=== PATIENT | female | born 1985 | race Caucasian/White ===

== ENCOUNTER 2018-11-07 07:42 | Inpatient (IN) ==
[2018-11-07] MEDS ORDERED: OXYTOCIN 30 UNITS/500 ML BAG IV PRN ×2 (08:06)
[2018-11-07 08:36] LABS: Hematocrit (blood only) 36.5 % (37-47); Hemoglobin 12.5 g/dL (12.0-16.0); Mean Corpuscular Volume 84.9 fL (80-100); Mean Platelet Volume 10.6 fL (7.4-10.4); Platelet Count 181 K/uL (130-400); RDW Coefficient of Variation 13.5 % (11.5-14.5); RDW Standard Deviation 41.3 fL (36.4-46.3); White Blood Count 10.04 K/uL (4.8-10.8)
--- NOTE | 2018-11-07 08:49 | History & Physical Report ---
Date of Service November 07, 2018 Assessment & Plan (1) Encounter for induction of labor: started on pitocin drip for augmentation of labor as well as fluid drip dale bulb still in place monitoring vitals, FHT and patient status Will adjust plan as necessary for augmentation History of Present Illness Primary Care Provider: Luly Mclaughlin 40w 4d confirmed via ultrasound on 03/30/2018. Here for induction of vaginal delivery. No complications with this . Has been attending OB appointments regularly. Currently taking no medications. Occasionally takes albuterol inhaler for exercise induced asthma, took it today for mild chest tightness during a contraction. Contractions: Sporadic Fluid or Blood loss: had dale bulb placed last night and experienced significant blood loss with that Movement: active Labs Blood type: A+ Antibody screen: neg H.5 Hct: 36.5 Wbc: 10.04 Plt:181 Rubella: immune VDRL/RPR: nonreactive Gonorrhea:neg Chlamydia:neg HIV: neg HbSAg: neg GBS: neg Glucose tolerance x2: first screen neg, second screen positive Allergies Allergy/AdvReac Type Severity Reaction Status Date / Time KEFLEX Allergy Mild Hives Uncoded 11/07/18 09:48 Home Medications Home Medications Medication Instructions Recorded Confirmed Type albuterol sulfate [ProAir HFA] 1 puff INHALATION Q6H PRN 11/01/18 11/07/18 History docusate sodium [Colace] 100 mg PO BID 11/01/18 11/07/18 History vit-iron fum-folic ac 1 tab PO DAILY 11/01/18 11/07/18 History [ Vitamin] Patient History Medical History Encounter for supervision of normal in third trimester History of genital warts History of ovarian cyst Surgical History S/P wisdom tooth extraction Family History Father Myasthenia gravis Social History Preferred Language: Togolese Beliefs That Will Affect Care: None marital status: Current Living Situation: Spouse Other Information That Helps Us Care for You: No Feels Safe at Home: Yes Safety Concerns: Feels Safe At This Time Smoking Status: Former smoker Second Hand Exposure: No ; Hx Alcohol Use: No Hx Substance Use: No Review of Systems + fatigue; no fever and no chills no cough, no dyspnea and no wheezing + edema; no chest pain and no calf pain + cramping; no abdominal pain, no nausea, no vomiting, no constipation and no diarrhea/loose stools no dysuria and no difficulty urinating no back pain + headache(s) (tension headache for past 2 days) Physical Exam Constitutional: well developed and well nourished Respiratory: normal respiratory effort; no respiratory distress, no labored breathing and no cough Auscultation: no diminished lung sounds, no crackles, no rales, no rhonchi and no wheezes Cardiovascular: Rate/Rhythm: regular rate and regular rhythm Extremities: normal capillary refill, + calf tenderness (L calf on palpation) and + pedal edema Gastrointestinal (Abdomen): Inspection/Auscultation: + abdomen distended and normal bowel sounds Percussion/Palpation: abdomen nontender and no guarding Genitourinary: Speculum/Bimanual Exam: + uterus enlarged OB Exam Abdomen: + fundal height Fundus: + firm and + relation to umbilicus (high above umbilicus); not tender Cervical Exam per OB: Dilation - fingertip Effacement - 80% Station - -2 Results & Data Vital Signs (Past 12 Hours) Vital Signs Temp Pulse BP 11/07/18 07:59 36.7 C 63 120/66 11/07/18 07:52 63 120/66 Monitoring External Monitor Heart Monitor: Moderate Variability Accelerations No Decels Baseline HR 140 Tocodynamometer Contraction Frequency: sporadic, not timeable at the moment Supervising Physician Co-Signing Physician Notes Resident Physician Supervision Note: I was present with Dr. Garcia during the history and exam. I discussed the case with the resident and agree with the findings and plan as documented in the note. Any exceptions or clarifications are listed here: [None] Documented By: Chen Jacobsen MD, FACOG
[2018-11-07 08:58] LABS: Mean Corpuscular Hgb Conc 34.2 g/dL (32-36)
[2018-11-07] MEDS: LACTATED RINGER'S 1,000 ML IV PRN ×3 (09:39→22:57)
[2018-11-07] MEDS ORDERED: ACETAMINOPHEN 325 MG TAB PO STA (10:23)
[2018-11-07] MEDS ORDERED: ACETAMINOPHEN 65 ML IV ONE (10:30)
[2018-11-07] MEDS ORDERED: ALBUTEROL HFA 8 GM INHALER INH STA (10:59)
[2018-11-07] MEDS ORDERED: Nursing to Pharmacy Communication ONE (20:00)
[2018-11-07] MEDS ORDERED: ePHEDrine sulfate 50 MG/ML AMP ONE (21:44)
[2018-11-07] MEDS ORDERED: fentaNYL citrate 100 MCG/2 ML VIAL ONE (21:44)
[2018-11-07] MEDS ORDERED: BUPIVACAINE 0.25% 30 ML VIAL ONE (21:44)
[2018-11-07] MEDS ORDERED: fentaNYL 2MCG/ML ROPIV 1.25MG/ML 100 ML BAG EPI ONE (21:45)
--- NOTE | 2018-11-07 22:46 | Anesthesiology Consultation ---
Date of Service November 07, 2018 Assessment & Plan Chart Review Chart Review: Acceptable Risk for Labor Epidural Consults Requested none History Height/Weight Height: 5 ft 5 in Weight: 92.986 kg Allergies Allergy/AdvReac Type Severity Reaction Status Date / Time KEFLEX Allergy Mild Hives Uncoded 11/07/18 09:48 Medications Home Medications Medication Instructions Recorded Confirmed Last Taken albuterol sulfate [ProAir HFA] 1 puff INHALATION Q6H PRN 11/01/18 11/07/18 11/07/18 06:30 docusate sodium [Colace] 100 mg PO BID 11/01/18 11/07/18 11/06/18 09:00 vit-iron fum-folic ac 1 tab PO DAILY 11/01/18 11/07/18 11/06/18 09:00 [ Vitamin] Active Medications Generic Name Dose Route Start Last Admin Trade Name Freq PRN Reason Stop Dose Admin Lactated Ringer's 1,000 mls @ 125 mls/hr 11/07/18 08:06 11/07/18 17:42 Lr IV 11/09/18 08:05 125 mls/hr .Q8H PRN Administration L&D Protocol Protocol Oxytocin 30 units in 500 mls @ 21 mls/hr 11/07/18 08:06 11/07/18 20:30 Pitocin IV 12/07/18 08:05 1.26 units/hr .[id number] PRN 21 mls/hr Labor Induction/Augmentation Titration Protocol 1.26 UNITS/HR Past Medical History Medical History Encounter for supervision of normal in third trimester History of genital warts History of ovarian cyst Past Family History Family History Father Myasthenia gravis Past Surgical History Surgical History S/P wisdom tooth extraction Social History Smoking Status: Former smoker Hx Alcohol Use: No Hx Substance Use: No substance use type: does not use Physical Exam Vital Signs Last Vital Signs Temp 36.9 C 11/07/18 21:38 Pulse 62 11/07/18 22:42 Resp 20 11/07/18 21:38 BP 112/66 11/07/18 22:42 Pulse Ox 97 11/07/18 22:40 Testing Laboratory Results 11/07/18 08:11
[2018-11-07] MEDS ORDERED: NALBUPHINE HCL INJ 10 MG/ML AMP IV PRN (22:49)
[2018-11-07] MEDS ORDERED: NALOXONE HCL 1 MG in SODIUM CHLORIDE 0.9% 1000ML 1,000 ML IV PRN (22:49)
[2018-11-07] MEDS ORDERED: ePHEDrine sulfate 50 MG/ML AMP IV PRN (22:49)
[2018-11-07] MEDS ORDERED: DiphenhydrAMINE HCL 50 MG/ML VIAL IV PRN (22:49)
[2018-11-07] MEDS ORDERED: fentaNYL 2MCG/ML ROPIV 1.25MG/ML 100 ML BAG EPI PRN (22:49)
[2018-11-07] MEDS ORDERED: NALOXONE HCL 0.4 MG/1 ML VIAL/CARP IV PRN (22:49)
[2018-11-08] MEDS: LACTATED RINGER'S 1,000 ML IV PRN ×2 (02:30→07:05)
--- NOTE | 2018-11-08 08:40 | Labor Progress Brief Note ---
Date of Service November 08, 2018 Subjective pushing Assessment & Plan (1) Encounter for induction of labor: Will continue second stage. I have concerns about this baby fitting out and whether it will tolerate a prolonged push. discussed this with the patient. they express understanding of the situation. Fetus catetory 2. (2) Supervision of elderly primigravida: Physical Exam Constitutional: WD/WN, vitals as above Genitourinary: cx--c/c/+1, very tight vaginal band anteriorly toco--q2-3min, pit at 15 efm--150s with mod variability, variables with potential late component with pushing, does seem to be back to baseline by end of contraction Results & Data Vital Signs (Past 12 Hours) Vital Signs Temp Pulse Resp BP Pulse Ox 11/08/18 08:35 61 99 11/08/18 08:33 61 110/67 11/08/18 08:30 63 99 11/08/18 08:25 56 L 99 11/08/18 08:20 61 100 11/08/18 08:19 57 L 106/63 11/08/18 08:15 61 98 11/08/18 08:13 60 87 L 11/08/18 08:10 62 99 11/08/18 08:05 56 L 100 11/08/18 08:04 56 L 119/57 L 11/08/18 08:00 50 L 96 11/08/18 07:55 52 L 97 11/08/18 07:50 52 L 98/54 L 100 11/08/18 07:45 56 L 100 11/08/18 07:40 57 L 98 11/08/18 07:35 56 L 98/55 L 98 11/08/18 07:30 57 L 100 11/08/18 07:25 56 L 100 11/08/18 07:20 54 L 100 11/08/18 07:19 56 L 18 118/64 11/08/18 07:15 62 99 11/08/18 07:10 54 L 99 11/08/18 07:05 55 L 100 11/08/18 07:04 54 L 107/59 L 11/08/18 07:00 36.4 C L 57 L 18 100 11/08/18 06:55 61 99 11/08/18 06:50 58 L 100 11/08/18 06:48 50 L 115/65 08/08/19 06:45 52 L 100 11/08/18 06:40 57 L 100 11/08/18 06:35 54 L 113/68 100 11/08/18 06:30 56 L 20 100 11/08/18 06:25 61 99 11/08/18 06:20 56 L 100 11/08/18 06:19 55 L 106/59 L 11/08/18 06:15 52 L 99 11/08/18 06:10 52 L 100 11/08/18 06:06 59 L 117/60 11/08/18 06:05 67 100 11/08/18 06:00 36.9 C 66 98 11/08/18 05:55 60 99 11/08/18 05:50 66 121/68 99 11/08/18 05:45 59 L 99 11/08/18 05:40 62 100 11/08/18 05:35 54 L 100 11/08/18 05:33 56 L 116/73 11/08/18 05:30 58 L 20 100 11/08/18 05:25 87 97 11/08/18 05:22 60 93 11/08/18 05:20 54 L 100 11/08/18 05:19 63 107/67 11/08/18 05:15 60 100 11/08/18 05:10 58 L 96 11/08/18 05:05 59 L 103/65 98 11/08/18 05:00 67 99 11/08/18 04:55 68 95 11/08/18 04:50 49 L 96 11/08/18 04:48 47 L 98/65 L 11/08/18 04:45 51 L 96 11/08/18 04:40 50 L 97 11/08/18 04:35 53 L 106/68 98 11/08/18 04:32 36.5 C 20 11/08/18 04:30 54 L 99 11/08/18 04:25 57 L 100 11/08/18 04:20 50 L 97 11/08/18 04:18 89/53 L 11/08/18 04:16 52 L 94 11/08/18 04:15 50 L 96 11/08/18 04:10 57 L 97 11/08/18 04:05 54 L 98 11/08/18 04:03 52 L 87/51 L 11/08/18 04:00 53 L 98 11/08/18 03:55 52 L 99 11/08/18 03:50 56 L 100 11/08/18 03:49 57 L 90/54 L 11/08/18 03:45 55 L 100 11/08/18 03:40 37.0 C 54 L 20 100 11/08/18 03:35 55 L 99 11/08/18 03:34 54 L 106/54 L 11/08/18 03:30 56 L 100 11/08/18 03:25 58 L 100 11/08/18 03:20 61 98 11/08/18 03:19 64 112/60 11/08/18 03:18 73 93 11/08/18 03:15 62 97 11/08/18 03:10 50 L 100 11/08/18 03:05 58 L 100 11/08/18 03:04 50 L 110/71 11/08/18 03:00 52 L 97 11/08/18 02:55 53 L 97 11/08/18 02:50 51 L 96 11/08/18 02:48 50 L 107/69 11/08/18 02:45 50 L 98 11/08/18 02:40 53 L 99 11/08/18 02:35 53 L 99 11/08/18 02:33 52 L 108/66 11/08/18 02:30 65 100 11/08/18 02:25 51 L 100 11/08/18 02:20 53 L 100 11/08/18 02:18 54 L 105/68 11/08/18 02:15 50 L 100 11/08/18 02:10 52 L 100 11/08/18 02:05 50 L 100 11/08/18 02:04 57 L 100/60 11/08/18 02:00 53 L 20 98 11/08/18 01:55 55 L 100 11/08/18 01:50 53 L 100 11/08/18 01:49 51 L 98/50 L 11/08/18 01:45 51 L 99 11/08/18 01:40 55 L 99 11/08/18 01:35 72 96 11/08/18 01:34 60 104/63 11/08/18 01:30 36.9 C 54 L 20 96 11/08/18 01:25 54 L 96 11/08/18 01:20 54 L 99 11/08/18 01:19 55 L 102/58 L 11/08/18 01:15 54 L 98 11/08/18 01:10 55 L 98 11/08/18 01:05 53 L 99 11/08/18 01:03 53 L 95/56 L 11/08/18 01:00 53 L 20 98 11/08/18 00:55 72 97 11/08/18 00:50 58 L 98 11/08/18 00:48 58 L 107/62 11/08/18 00:45 53 L 96 11/08/18 00:40 54 L 98 11/08/18 00:35 51 L 100 11/08/18 00:34 53 L 113/64 11/08/18 00:30 67 18 99 11/08/18 00:25 53 L 98 11/08/18 00:20 53 L 96 11/08/18 00:19 54 L 106/66 11/08/18 00:15 55 L 99 11/08/18 00:10 57 L 98 11/08/18 00:05 65 99 11/08/18 00:03 60 112/55 L 11/08/18 00:00 73 20 98 11/07/18 23:56 54 L 84/54 L 11/07/18 23:55 58 L 99 11/07/18 23:50 59 L 99 11/07/18 23:45 64 96 11/07/18 23:40 55 L 114/67 97 11/07/18 23:35 56 L 97 11/07/18 23:30 54 L 20 98 11/07/18 23:25 58 L 99 11/07/18 23:24 57 L 110/63 11/07/18 23:20 60 99 11/07/18 23:15 62 20 99 11/07/18 23:10 60 114/73 99 11/07/18 23:05 57 L 98 11/07/18 23:00 36.7 C 58 L 20 100 11/07/18 22:58 69 92 11/07/18 22:55 60 99 11/07/18 22:54 60 131/68 11/07/18 22:50 54 L 100 11/07/18 22:47 59 L 128/74 11/07/18 22:45 63 20 100 11/07/18 22:42 62 112/66 11/07/18 22:40 63 20 111/61 97 11/07/18 22:38 64 108/59 L 11/07/18 22:35 62 20 115/56 L 100 11/07/18 22:31 68 90 11/07/18 22:30 65 20 100 11/07/18 22:25 70 100 11/07/18 22:24 60 115/75 11/07/18 22:22 65 115/79 11/07/18 22:20 60 100 11/07/18 22:15 60 100 11/07/18 22:14 73 128/80 11/07/18 22:10 62 100 11/07/18 21:38 36.9 C 20 11/07/18 21:23 60 134/84
--- NOTE | 2018-11-08 09:07 | Delivery Summary ---
Vaginal Delivery Summary Date of Service November 08, 2018 Vaginal Delivery Summary Pre-operative Diagnosis: at term, previous c/s, desires , labor Post-operative Diagnosis: same Procedure: epidural, , second degree laceration EBL: 400 Aesthesia: epidural Procedure: The patient pushed for about 10 minutes to deliver a viable male in trip position. The nose and mouth were bulb suctioned, there was no nuchal cord. the rest of the infant was then delivered without difficulty. The nose and mouth were bulb suctioned and the infant was placed in the maternal abdomen for drying and attention. Cord was clamped and cut at just after placeing on abdomen as it was a short cord. Cord blood and segment obtained. Placenta delivered s/i/3vc. Cervix/sulci/rectum intact. A second degree perineal laceration was repaired in the normal standard fashion. Hemostasis obtained with dilute pitocin and fundal massage. Apgars were 9/10. Mother and baby doing well at the end of the delivery.
[2018-11-08] MEDS ORDERED: OXYCODONE/ACETAMINOPHEN 5mg/325mg TAB PO PRN (09:09)
[2018-11-08] MEDS ORDERED: IBUPROFEN 600 MG TAB PO PRN (09:09)
[2018-11-08] MEDS ORDERED: ACETAMINOPHEN 325 MG TAB PO PRN (09:09)
--- NOTE | 2018-11-08 09:32 | Labor Progress Brief Note ---
Date of Service November 08, 2018 Subjective Patient has been pushing since 8:15 or so. Pushed for a good bit of time in knee chest. Assessment & Plan (1) Encounter for induction of labor: Going to push for about 15 more minutes but suspect will be proceeding with c/s ofr FTD. Disucssed with patient and so and express understanding. (2) Supervision of elderly primigravida: Physical Exam Constitutional: WD/WN, vitals as above Genitourinary: essentially no change in station. Still tight vaginal anterior band. Still +1 station with increasing caput. toco--1 2-3 min efm--135 with mod variability, less deceling with knee to chest, now back on back, less tolerable Results & Data Vital Signs (Past 12 Hours) Vital Signs Temp Pulse Resp BP Pulse Ox 11/08/18 09:20 57 L 123/71 99 11/08/18 09:15 75 99 11/08/18 09:10 69 99 11/08/18 09:09 70 90 11/08/18 09:05 63 100 11/08/18 09:03 59 L 111/70 11/08/18 09:00 67 100 11/08/18 08:55 75 98 11/08/18 08:52 36.6 C 16 11/08/18 08:50 64 99 11/08/18 08:48 63 110/67 11/08/18 08:45 71 100 11/08/18 08:40 82 100 11/08/18 08:38 73 93 11/08/18 08:35 61 99 11/08/18 08:33 61 110/67 11/08/18 08:30 63 99 11/08/18 08:25 56 L 99 11/08/18 08:20 61 100 11/08/18 08:19 57 L 106/63 11/08/18 08:15 61 98 11/08/18 08:13 60 87 L 11/08/18 08:10 62 99 11/08/18 08:05 56 L 100 11/08/18 08:04 56 L 119/57 L 11/08/18 08:00 50 L 96 11/08/18 07:55 52 L 97 11/08/18 07:50 52 L 98/54 L 100 11/08/18 07:45 56 L 100 11/08/18 07:40 57 L 98 11/08/18 07:35 56 L 98/55 L 98 11/08/18 07:30 57 L 100 11/08/18 07:25 56 L 100 11/08/18 07:20 54 L 100 11/08/18 07:19 56 L 18 118/64 11/08/18 07:15 62 99 11/08/18 07:10 54 L 99 11/08/18 07:05 55 L 100 11/08/18 07:04 54 L 107/59 L 11/08/18 07:00 36.4 C L 57 L 18 100 11/08/18 06:55 61 99 11/08/18 06:50 58 L 100 11/08/18 06:48 50 L 115/65 11/08/18 06:45 52 L 100 11/08/18 06:40 57 L 100 11/08/18 06:35 54 L 113/68 100 11/08/18 06:30 56 L 20 100 11/08/18 06:25 61 99 11/08/18 06:20 56 L 100 11/08/18 06:19 55 L 106/59 L 11/08/18 06:15 52 L 99 11/08/18 06:10 52 L 100 11/08/18 06:06 59 L 117/60 11/08/18 06:05 67 100 11/08/18 06:00 36.9 C 66 98 11/08/18 05:55 60 99 11/08/18 05:50 66 121/68 99 11/08/18 05:45 59 L 99 11/08/18 05:40 62 100 11/08/18 05:35 54 L 100 11/08/18 05:33 56 L 116/73 11/08/18 05:30 58 L 20 100 11/08/18 05:25 87 97 11/08/18 05:22 60 93 11/08/18 05:20 54 L 100 11/08/18 05:19 63 107/67 11/08/18 05:15 60 100 11/08/18 05:10 58 L 96 11/08/18 05:05 59 L 103/65 98 11/08/18 05:00 67 99 11/08/18 04:55 68 95 11/08/18 04:50 49 L 96 11/08/18 04:48 47 L 98/65 L 11/08/18 04:45 51 L 96 11/08/18 04:40 50 L 97 11/08/18 04:35 53 L 106/68 98 11/08/18 04:32 36.5 C 20 11/08/18 04:30 54 L 99 11/08/18 04:25 57 L 100 11/08/18 04:20 50 L 97 11/08/18 04:18 89/53 L 11/08/18 04:16 52 L 94 11/08/18 04:15 50 L 96 11/08/18 04:10 57 L 97 11/08/18 04:05 54 L 98 11/08/18 04:03 52 L 87/51 L 11/08/18 04:00 53 L 98 11/08/18 03:55 52 L 99 11/08/18 03:50 56 L 100 11/08/18 03:49 57 L 90/54 L 11/08/18 03:45 55 L 100 11/08/18 03:40 37.0 C 54 L 20 100 11/08/18 03:35 55 L 99 11/08/18 03:34 54 L 106/54 L 11/08/18 03:30 56 L 100 11/08/18 03:25 58 L 100 11/08/18 03:20 61 98 11/08/18 03:19 64 112/60 11/08/18 03:18 73 93 11/08/18 03:15 62 97 11/08/18 03:10 50 L 100 11/08/18 03:05 58 L 100 11/08/18 03:04 50 L 110/71 11/08/18 03:00 52 L 97 11/08/18 02:55 53 L 97 11/08/18 02:50 51 L 96 11/08/18 02:48 50 L 107/69 11/08/18 02:45 50 L 98 11/08/18 02:40 53 L 99 11/08/18 02:35 53 L 99 11/08/18 02:33 52 L 108/66 11/08/18 02:30 65 100 11/08/18 02:25 51 L 100 11/08/18 02:20 53 L 100 11/08/18 02:18 54 L 105/68 11/08/18 02:15 50 L 100 11/08/18 02:10 52 L 100 11/08/18 02:05 50 L 100 11/08/18 02:04 57 L 100/60 11/08/18 02:00 53 L 20 98 11/08/18 01:55 55 L 100 11/08/18 01:50 53 L 100 11/08/18 01:49 51 L 98/50 L 11/08/18 01:45 51 L 99 11/08/18 01:40 55 L 99 11/08/18 01:35 72 96 11/08/18 01:34 60 104/63 11/08/18 01:30 36.9 C 54 L 20 96 11/08/18 01:25 54 L 96 11/08/18 01:20 54 L 99 11/08/18 01:19 55 L 102/58 L 11/08/18 01:15 54 L 98 11/08/18 01:10 55 L 98 11/08/18 01:05 53 L 99 11/08/18 01:03 53 L 95/56 L 11/08/18 01:00 53 L 20 98 11/08/18 00:55 72 97 11/08/18 00:50 58 L 98 11/08/18 00:48 58 L 107/62 11/08/18 00:45 53 L 96 11/08/18 00:40 54 L 98 11/08/18 00:35 51 L 100 11/08/18 00:34 53 L 113/64 11/08/18 00:30 67 18 99 11/08/18 00:25 53 L 98 11/08/18 00:20 53 L 96 11/08/18 00:19 54 L 106/66 11/08/18 00:15 55 L 99 11/08/18 00:10 57 L 98 11/08/18 00:05 65 99 11/08/18 00:03 60 112/55 L 11/08/18 00:00 73 20 98 11/07/18 23:56 54 L 84/54 L 11/07/18 23:55 58 L 99 11/07/18 23:50 59 L 99 11/07/18 23:45 64 96 11/07/18 23:40 55 L 114/67 97 11/07/18 23:35 56 L 97 11/07/18 23:30 54 L 20 98 11/07/18 23:25 58 L 99 11/07/18 23:24 57 L 110/63 11/07/18 23:20 60 99 11/07/18 23:15 62 20 99 11/07/18 23:10 60 114/73 99 11/07/18 23:05 57 L 98 11/07/18 23:00 36.7 C 58 L 20 100 11/07/18 22:58 69 92 11/07/18 22:55 60 99 11/07/18 22:54 60 131/68 11/07/18 22:50 54 L 100 11/07/18 22:47 59 L 128/74 11/07/18 22:45 63 20 100 11/07/18 22:42 62 112/66 11/07/18 22:40 63 20 111/61 97 11/07/18 22:38 64 108/59 L 11/07/18 22:35 62 20 115/56 L 100 11/07/18 22:31 68 90 11/07/18 22:30 65 20 100 11/07/18 22:25 70 100 11/07/18 22:24 60 115/75 11/07/18 22:22 65 115/79 11/07/18 22:20 60 100 11/07/18 22:15 60 100 11/07/18 22:14 73 128/80 11/07/18 22:10 62 100 11/07/18 21:38 36.9 C 20
--- NOTE | 2018-11-08 09:44 | Communication Note ---
Date of Service: November 08, 2018 Baby is not tolerating pushing in semi fowlers. Has been pushing for about 1 hr 15-20 min. Has not made any progress. Patient has FTD. I recommend proceeding with c/s now. She is very upset by this but ultimately after calming down, understands reasoning and agrees to proceed.
[2018-11-08] MEDS ORDERED: LACTATED RINGER'S 1,000 ML IV SCH ×2 (09:45→10:40)
[2018-11-08] MEDS ORDERED: CITRIC ACID/SODIUM CITRATE 15 ML UDC PO STA (10:07)
[2018-11-08] MEDS ORDERED: CLINDAMYCIN 900 MG in DEXTROSE 5% 50 ML IV STA (10:08)
[2018-11-08] MEDS ORDERED: CITRIC ACID/SODIUM CITRATE 15 ML UDC ONE (10:08)
[2018-11-08] MEDS ORDERED: OXYTOCIN 10 UNITS/ML VIAL ONE (10:35)
[2018-11-08] MEDS ORDERED: ONDANSETRON INJ 2 MG/ML 2 ML VIAL ONE (10:35)
[2018-11-08] MEDS ORDERED: PHENYLEPHRINE 100MCG/ML 5ML SYR ONE (10:35)
[2018-11-08] MEDS ORDERED: METHYLERGONOVINE MALEATE 0.2 MG/ML AMP ONE (10:52)
[2018-11-08] MEDS ORDERED: MoRPHine SULFATE PF 1 MG/ML 10 ML AMP/VIAL ONE (10:58)
[2018-11-08] MEDS ORDERED: NALBUPHINE HCL INJ 10 MG/ML AMP IV PRN (11:08)
[2018-11-08] MEDS ORDERED: MoRPHine SULFATE 2 MG/ML CARP IV PRN (11:08)
[2018-11-08] MEDS ORDERED: NALOXONE HCL 0.4 MG/1 ML VIAL/CARP IV PRN (11:08)
[2018-11-08] MEDS ORDERED: NALOXONE HCL 1 MG in SODIUM CHLORIDE 0.9% 1000ML 1,000 ML IV PRN (11:08)
[2018-11-08] MEDS ORDERED: DiphenhydrAMINE HCL 50 MG/ML VIAL IV PRN (11:08)
[2018-11-08] MEDS ORDERED: ONDANSETRON INJ 2 MG/ML 2 ML VIAL IV PRN (11:08)
[2018-11-08] MEDS ORDERED: MEPERIDINE HCL 25 MG/ML CARP IV PRN (11:08)
[2018-11-08] MEDS ORDERED: ePHEDrine sulfate 50 MG/ML AMP IV PRN (11:08)
[2018-11-08] MEDS ORDERED: NALOXONE HCL 0.08 MG in SYRINGE 1.8 ML IV PRN (11:08)
[2018-11-08] MEDS ORDERED: KETOROLAC 30 MG/ML VIAL IV PRN (11:08)
[2018-11-08] MEDS ORDERED: LACTATED RINGER'S 500 ML IV PRN (11:08)
[2018-11-08] MEDS ORDERED: MoRPHine SULFATE PF 1 MG/ML 10 ML AMP/VIAL EPI ONE (11:08)
[2018-11-08] MEDS ORDERED: NO NARCOTICS OR SEDATIVES SCH (11:15)
[2018-11-08] MEDS ORDERED: SODIUM CHLORIDE 0.9% 1000ML 1,000 ML IV SCH (11:15)
[2018-11-08] MEDS ORDERED: DC INTRASPINAL MORPHINE SCH (11:15)
--- NOTE | 2018-11-08 11:23 | Post Operative Brief Note ---
PG Immediate Post Op with CF Date of Surgery November 08, 2018 Pre & Post Diagnosis Operation Date: 11/08/18 10:15 Pre-Op Diagnosis: 41 weeks. Failure to descend. Post-Op Diagnosis: 41 weeks. Failure to descend. Procedure Operation Date: 11/08/18 10:15 Actual Procedures p Primary low transverse Section in LD - Suzanne Mckeon MD, FACOG left cervical extension with repair Surgeon Suzanne Mckeon MD, FACOG [employer] Brigitte Chand RN Estimated Blood Loss 700 Findings Consistent with Post-Op Diagnosis Drains Santos Catheter (placed in labor)
--- NOTE | 2018-11-08 11:40 | Anesthesia Procedure Note ---
Date of Service November 08, 2018 Anesthesia Post Epidural Note Vital Signs Vital Signs: Temp Pulse Resp BP Pulse Ox 36.6 C 77 16 125/64 87 L 11/08/18 08:52 11/08/18 11:38 11/08/18 08:52 11/08/18 11:33 11/08/18 11:38 Pain Intensity Bilateral Pelvic: Pain Intensity: 0 Notes Mental Status: alert / awake / arousable and participated in evaluation Patient Amnestic to Procedure: No Nausea / Vomiting: adequately controlled Pain: adequately controlled Airway Patency, RR, SpO2: stable & adequate BP & HR: stable & adequate Hydration State: stable & adequate Neuraxial Anesthesia: was administered and sensory block is resolving Anesthetic Complications: no major complications apparent and Pt Satisfied with anesthetic care Epidural: Removed without complications and With tip intact
--- NOTE | 2018-11-08 11:41 | Anesthesiology Progress Note ---
Date of Service November 08, 2018 Anesthesia Post Procedure Vital Signs Vital Signs: Temp Pulse Resp BP Pulse Ox 11/08/18 11:38 77 87 L 11/08/18 11:33 65 125/64 100 11/08/18 10:18 99 H 97 11/08/18 10:14 64 116/67 11/08/18 10:13 79 95 11/08/18 10:08 60 97 11/08/18 10:05 57 L 123/63 11/08/18 09:57 71 99 11/08/18 09:52 71 99 11/08/18 09:49 60 124/59 L 11/08/18 09:47 69 99 11/08/18 09:42 75 100 11/08/18 09:37 79 100 11/08/18 09:35 99 H 146/93 H 11/08/18 09:32 63 100 11/08/18 09:31 68 77 L 11/08/18 09:26 61 99 11/08/18 09:25 55 L 87 L 11/08/18 09:20 57 L 123/71 99 11/08/18 09:15 75 99 11/08/18 09:10 69 99 11/08/18 09:09 70 90 11/08/18 09:05 63 100 11/08/18 09:03 59 L 111/70 11/08/18 09:00 67 100 11/08/18 08:55 75 98 11/08/18 08:52 36.6 C 16 11/08/18 08:50 64 99 11/08/18 08:48 63 110/67 11/08/18 08:45 71 100 11/08/18 08:40 82 100 11/08/18 08:38 73 93 11/08/18 08:35 61 99 11/08/18 08:33 61 110/67 11/08/18 08:30 63 99 11/08/18 08:25 56 L 99 11/08/18 08:20 61 100 11/08/18 08:19 57 L 106/63 11/08/18 08:15 61 98 11/08/18 08:13 60 87 L 11/08/18 08:10 62 99 11/08/18 08:05 56 L 100 11/08/18 08:04 56 L 119/57 L 08/08/19 08:00 50 L 96 11/08/18 07:55 52 L 97 11/08/18 07:50 52 L 98/54 L 100 11/08/18 07:45 56 L 100 11/08/18 07:40 57 L 98 11/08/18 07:35 56 L 98/55 L 98 11/08/18 07:30 57 L 100 11/08/18 07:25 56 L 100 11/08/18 07:20 54 L 100 11/08/18 07:19 56 L 18 118/64 11/08/18 07:15 62 99 11/08/18 07:10 54 L 99 11/08/18 07:05 55 L 100 11/08/18 07:04 54 L 107/59 L 11/08/18 07:00 36.4 C L 57 L 18 100 11/08/18 06:55 61 99 11/08/18 06:50 58 L 100 11/08/18 06:48 50 L 115/65 11/08/18 06:45 52 L 100 11/08/18 06:40 57 L 100 11/08/18 06:35 54 L 113/68 100 11/08/18 06:30 56 L 20 100 11/08/18 06:25 61 99 11/08/18 06:20 56 L 100 11/08/18 06:19 55 L 106/59 L 11/08/18 06:15 52 L 99 11/08/18 06:10 52 L 100 11/08/18 06:06 59 L 117/60 11/08/18 06:05 67 100 11/08/18 06:00 36.9 C 66 98 11/08/18 05:55 60 99 11/08/18 05:50 66 121/68 99 11/08/18 05:45 59 L 99 11/08/18 05:40 62 100 11/08/18 05:35 54 L 100 11/08/18 05:33 56 L 116/73 11/08/18 05:30 58 L 20 100 11/08/18 05:25 87 97 11/08/18 05:22 60 93 11/08/18 05:20 54 L 100 11/08/18 05:19 63 107/67 11/08/18 05:15 60 100 11/08/18 05:10 58 L 96 11/08/18 05:05 59 L 103/65 98 11/08/18 05:00 67 99 11/08/18 04:55 68 95 11/08/18 04:50 49 L 96 11/08/18 04:48 47 L 98/65 L 11/08/18 04:45 51 L 96 11/08/18 04:40 50 L 97 11/08/18 04:35 53 L 106/68 98 11/08/18 04:32 36.5 C 20 11/08/18 04:30 54 L 99 11/08/18 04:25 57 L 100 11/08/18 04:20 50 L 97 11/08/18 04:18 89/53 L 11/08/18 04:16 52 L 94 11/08/18 04:15 50 L 96 11/08/18 04:10 57 L 97 11/08/18 04:05 54 L 98 11/08/18 04:03 52 L 87/51 L 11/08/18 04:00 53 L 98 11/08/18 03:55 52 L 99 11/08/18 03:50 56 L 100 11/08/18 03:49 57 L 90/54 L 11/08/18 03:45 55 L 100 11/08/18 03:40 37.0 C 54 L 20 100 11/08/18 03:35 55 L 99 11/08/18 03:34 54 L 106/54 L 11/08/18 03:30 56 L 100 11/08/18 03:25 58 L 100 11/08/18 03:20 61 98 11/08/18 03:19 64 112/60 11/08/18 03:18 73 93 11/08/18 03:15 62 97 11/08/18 03:10 50 L 100 11/08/18 03:05 58 L 100 11/08/18 03:04 50 L 110/71 11/08/18 03:00 52 L 97 11/08/18 02:55 53 L 97 11/08/18 02:50 51 L 96 11/08/18 02:48 50 L 107/69 11/08/18 02:45 50 L 98 11/08/18 02:40 53 L 99 11/08/18 02:35 53 L 99 11/08/18 02:33 52 L 108/66 11/08/18 02:30 65 100 11/08/18 02:25 51 L 100 11/08/18 02:20 53 L 100 11/08/18 02:18 54 L 105/68 11/08/18 02:15 50 L 100 11/08/18 02:10 52 L 100 11/08/18 02:05 50 L 100 11/08/18 02:04 57 L 100/60 11/08/18 02:00 53 L 20 98 11/08/18 01:55 55 L 100 11/08/18 01:50 53 L 100 11/08/18 01:49 51 L 98/50 L 11/08/18 01:45 51 L 99 11/08/18 01:40 55 L 99 11/08/18 01:35 72 96 11/08/18 01:34 60 104/63 11/08/18 01:30 36.9 C 54 L 20 96 11/08/18 01:25 54 L 96 11/08/18 01:20 54 L 99 11/08/18 01:19 55 L 102/58 L 11/08/18 01:15 54 L 98 11/08/18 01:10 55 L 98 11/08/18 01:05 53 L 99 11/08/18 01:03 53 L 95/56 L 11/08/18 01:00 53 L 20 98 11/08/18 00:55 72 97 11/08/18 00:50 58 L 98 11/08/18 00:48 58 L 107/62 11/08/18 00:45 53 L 96 11/08/18 00:40 54 L 98 11/08/18 00:35 51 L 100 11/08/18 00:34 53 L 113/64 11/08/18 00:30 67 18 99 11/08/18 00:25 53 L 98 11/08/18 00:20 53 L 96 11/08/18 00:19 54 L 106/66 11/08/18 00:15 55 L 99 11/08/18 00:10 57 L 98 11/08/18 00:05 65 99 11/08/18 00:03 60 112/55 L 11/08/18 00:00 73 20 98 11/07/18 23:56 54 L 84/54 L 11/07/18 23:55 58 L 99 11/07/18 23:50 59 L 99 11/07/18 23:45 64 96 11/07/18 23:40 55 L 114/67 97 11/07/18 23:35 56 L 97 11/07/18 23:30 54 L 20 98 11/07/18 23:25 58 L 99 11/07/18 23:24 57 L 110/63 11/07/18 23:20 60 99 11/07/18 23:15 62 20 99 11/07/18 23:10 60 114/73 99 11/07/18 23:05 57 L 98 11/07/18 23:00 36.7 C 58 L 20 100 11/07/18 22:58 69 92 11/07/18 22:55 60 99 11/07/18 22:54 60 131/68 11/07/18 22:50 54 L 100 11/07/18 22:47 59 L 128/74 11/07/18 22:45 63 20 100 11/07/18 22:42 62 112/66 11/07/18 22:40 63 20 111/61 97 11/07/18 22:38 64 108/59 L 11/07/18 22:35 62 20 115/56 L 100 11/07/18 22:31 68 90 11/07/18 22:30 65 20 100 11/07/18 22:25 70 100 11/07/18 22:24 60 115/75 11/07/18 22:22 65 115/79 11/07/18 22:20 60 100 11/07/18 22:15 60 100 11/07/18 22:14 73 128/80 11/07/18 22:10 62 100 11/07/18 21:38 36.9 C 20 11/07/18 21:23 60 134/84 11/07/18 20:31 52 L 115/72 11/07/18 19:29 62 131/90 11/07/18 18:43 50 L 125/83 11/07/18 17:51 36.8 C 56 L 20 109/68 11/07/18 16:24 36.6 C 51 L 20 115/71 11/07/18 14:43 36.8 C 54 L 20 120/74 11/07/18 13:48 65 110/71 11/07/18 12:56 62 112/62 11/07/18 11:44 36.6 C 53 L 20 119/70 Pain Intensity Bilateral Pelvic: Pain Intensity: 0 Transfer of Care Handoff Completed per policy Notes Mental Status: alert / awake / arousable and participated in evaluation Patient Amnestic to Procedure: No Nausea / Vomiting: adequately controlled Pain: adequately controlled Airway Patency, RR, SpO2: stable & adequate BP & HR: stable & adequate Hydration State: stable & adequate Neuraxial Anesthesia: was administered and sensory block is resolving Anesthetic Complications: no major complications apparent and Pt Satisfied with anesthetic care
[2018-11-08] MEDS ORDERED: SENNA 8.6 MG TAB PO PRN (12:25)
[2018-11-08] MEDS ORDERED: OXYTOCIN 20 UNITS in LACTATED RINGER'S 1,000 ML IV SCH (12:25)
[2018-11-08] MEDS ORDERED: SUPERCREAM 0.870% 15 GM JAR EXT PRN (12:25)
[2018-11-08] MEDS ORDERED: HYDROCORTISONE ACETATE 25 MG SUPP PR PRN (12:25)
[2018-11-08] MEDS ORDERED: BENZOCAINE 20% AER SPR 82.5 GM CAN EXT PRN (12:25)
[2018-11-08] MEDS ORDERED: MAGNESIUM HYDROXIDE SUSP 30 ML UDC PO PRN (12:25)
[2018-11-08] MEDS ORDERED: DIPHTHERIA/TETANUS/PERTUSSIS 0.5 ML SYR/VIAL IM ONE (12:25)
[2018-11-08] MEDS: SIMETHICONE 80 MG CHEW PO SCH ×3 (13:15→20:32)
--- NOTE | 2018-11-08 19:51 | Operative Report ---
DATE OF OPERATION: 11/08/2018 PREOPERATIVE DIAGNOSES: 1. Intrauterine at 41 weeks. 2. Advanced maternal age. 3. Prolonged . 4. Failure to descend. POSTOPERATIVE DIAGNOSES: 1. Intrauterine at 41 weeks. 2. Advanced maternal age. 3. Prolonged . 4. Failure to descend. PROCEDURES: 1. Primary low transverse section. 2. Left cervical extension with repair. SURGEON: Suzanne Mckeon MD. PHYSICAL INTEGRATION PRACTITIONER: Brigitte Chand RN. ANESTHESIA: Epidural. ESTIMATED BLOOD LOSS: 700 mL. FLUIDS: 1500 mL. URINE OUTPUT: 150 mL of concentrated urine draining from the bladder at the end of the procedure. INDICATIONS: The patient is a 1, para 0 who presented for postdates induction. It was a prolonged difficult induction, but she did eventually get to complete-complete and +1 station. She pushed for an hour and 20 minutes without any descent of the station and with significant variables with late return to baseline with pushing. Decision was made to proceed with section. FINDINGS: Normal uterus, tubes, and ovaries were noted bilaterally. Viable male was delivered, it was wedged into the pelvis in LOP presentation, Apgars were 5 and 9. Weight is pending at the time of this delivery. There was a left cervical extension of the low transverse uterine incision. COMPLICATIONS: None. DRAINS: Santos. DISPOSITION: To recovery room in stable condition. DESCRIPTION OF PROCEDURE: The patient was taken to the operating room where she was identified verbally and by bracelet. She was transferred to the operating table, placed in a leftward tilt. Santos catheter had previously been placed. She was prepped and draped in a normal sterile fashion. Timeout was held, identifying correct patient, procedure, positioning, and antibiotics. There were no concerns. A Pfannenstiel skin incision was made with the knife and taken down to the underlying layer of fascia with knife and Bovie electrocautery. Bleeding was attended to with Bovie electrocautery. The fascia was incised with Bovie electrocautery and taken out laterally with scissors. The superior edge of the fascial incision was grasped, elevated, and underlying layer of rectus muscle was taken off bluntly and with scissors. Bleeding was attended to with Bovie electrocautery. In a similar fashion, the inferior edge of the fascial incision was grasped, elevated, and the underlying layer of rectus muscle was taken off bluntly and with scissors. The muscles were sharply in the midline and the peritoneum was entered bluntly. The incision was stretched, the bladder blade was placed. Vesicouterine peritoneum was grasped with a snap, entered with scissors, taken out laterally with scissors and the bladder flap was created digitally. The bladder blade was replaced. Hysterotomy incision was scored with the knife. It was entered with a snap. It was stretched with the monorail operator's fingers. The monorail operator's hand was placed into the deep pelvis and placed around the vertex. Unfortunately, I could not dislodge the head and required assistance from below for dislodging the head. When the head was dislodged, it was gently brought through the incision. The nose and mouth were bulb suctioned. There was no nuchal cord. The rest of the was then delivered without difficulty. The cord was clamped and cut and the infant was handed over to the waiting surface plate finisher. Cord blood was collected for donation and I was unable to get cord gases. The placenta was manually extracted. The uterus was exteriorized and cleared and all clot and debris with moist and laparotomy sponges. The hysterotomy incision was outlined with T clamps and left cervical extension was noted. Once the apex of the left cervical extension was identified. It was free of the bladder. The hysterotomy incision was repaired in a running locked layer of 0 Vicryl, and then a second imbricating layer of 0 Vicryl. Hemostasis was then noted to be good. Posterior cul-de-sac was irrigated and cleared of all clot and debris. The hysterotomy incision was again inspected and found to be intact. The uterus was reanteriorized and hysterotomy incision was again inspected and found to be intact. The muscles were reapproximated with several interrupted sutures of 0 Vicryl. The fascia was then reapproximated with 0 Vicryl suture starting at the corners and meeting in the midline. The subcuticular tissue was irrigated, was hemostatic and the skin was closed with subcuticular stitch of 4-0 Vicryl. All sponge, lap and needle counts were correct x2. The patient tolerated the procedure well and was taken to the recovery room in stable condition. I attest to the content of the Intraoperative Record and any orders documented therein. Any exception s are noted below.
[2018-11-08] MEDS: DOCUSATE SODIUM 100 MG CAP PO SCH (20:31)
[2018-11-08] MEDS: LACTATED RINGER'S 1,000 ML IV SCH (21:14)
[2018-11-09] MEDS ORDERED: KETOROLAC 30 MG/ML VIAL IV PRN (05:09)
[2018-11-09] MEDS ORDERED: MEPERIDINE HCL 50 MG/ML CARP IV PRN (05:09)
[2018-11-09] MEDS ORDERED: PROMETHAZINE HCL 25 MG in SODIUM CHLORIDE 0.9% 50 ML IV PRN (05:09)
[2018-11-09] MEDS ORDERED: ONDANSETRON INJ 2 MG/ML 2 ML VIAL IV PRN (05:09)
[2018-11-09] MEDS ORDERED: DiphenhydrAMINE HCL 50 MG/ML VIAL IV PRN (05:09)
[2018-11-09 07:13] LABS: Basophils # (auto) 0.01 K/uL (0-0.2); Basophils % (auto) 0.1 %; Eosinophils # (auto) 0.02 K/uL (0-0.5); Eosinophils % (auto) 0.2 %; Hematocrit (blood only) 29.6 % (37-47); Immature Granulocytes # (auto) 0.03 K/uL (0.00-0.02); Immature Granulocytes % (auto) 0.3 %; Lymphocytes # (auto) 1.27 K/uL (1.2-3.4); Lymphocytes % (auto) 11.5 %; Mean Corpuscular Hgb Conc 33.8 g/dL (32-36); Mean Corpuscular Volume 84.3 fL (80-100); Mean Platelet Volume 10.6 fL (7.4-10.4); Monocytes # (auto) 0.47 K/uL (0.11-0.59); Monocytes % (auto) 4.3 %; Neutrophils # (auto) 9.22 K/uL (1.4-6.5); Neutrophils % (auto) 83.6 %; Platelet Count 125 K/uL (130-400); RDW Coefficient of Variation 13.8 % (11.5-14.5); Red Blood Count 3.51 M/uL (4.2-5.4); White Blood Count 11.02 K/uL (4.8-10.8)
--- NOTE | 2018-11-09 07:24 | Obstetrical Progress Note ---
Date of Service November 09, 2018 Assessment & Plan (1) delivery, delivered, current hospitalization: doing well. Dale out, void. Encourage ambulation. Work on breast feeding. routine PP care. Day #:: 1 Subjective Ambulation: ambulating normally Voiding: dale catheter in place (just removed, no void) Passing Gas:: Yes Diet Tolerance:: regular diet Lochia:: Small Feeding Type:: breast feeding Pain controlled, Feels well this am Physical Exam Constitutional WD/WN, vitals as above Cardiovascular Extremities: + edema (trace); no calf tenderness Gastrointestinal (Abdomen) Inspection/Auscultation: abdomen not distended Percussion/Palpation: abdomen soft; abdomen nontender fundus firm, appropriately tender at U incision--c/d/i, some dry blood on the dressing when removed. Psychiatric A+Ox3, euthymic affect Results & Data Vital Signs (Past 12 Hours) Vital Signs Temp Pulse Resp BP Pulse Ox 11/09/18 05:00 18 98 11/09/18 04:30 36.4 C L 79 18 99/61 L 98 11/09/18 04:10 18 98 11/09/18 03:05 18 100 11/09/18 02:05 18 98 11/09/18 01:35 18 100 11/09/18 00:10 36.9 C 77 18 101/62 100 11/08/18 23:10 18 100 11/08/18 23:00 36.6 C 83 20 103/68 98 11/08/18 22:35 18 99 11/08/18 21:35 20 99 11/08/18 20:35 20 100 11/08/18 19:35 36.7 C 86 18 110/70 98
[2018-11-09] MEDS: LACTATED RINGER'S 1,000 ML IV SCH ×3 (07:27→12:20)
[2018-11-09] MEDS: FERROUS SULFATE 325 MG TAB PO SCH (08:06)
[2018-11-09] MEDS: PRENATAL VITAMIN 1 TAB PO SCH (08:06)
[2018-11-09] MEDS: SIMETHICONE 80 MG CHEW PO SCH ×4 (08:06→20:38)
[2018-11-09] MEDS: DOCUSATE SODIUM 100 MG CAP PO SCH ×2 (08:06→20:38)
--- NOTE | 2018-11-09 08:38 | Anesthesiology Progress Note ---
Date of Service November 09, 2018 Anesthesia Post Procedure Vital Signs Vital Signs: Temp Pulse Pulse Resp BP BP Pulse Ox 11/09/18 08:00 36.7 C 89 18 80/51 L 99 11/09/18 05:00 18 98 11/09/18 04:30 36.4 C L 79 18 99/61 L 98 11/09/18 04:10 18 98 11/09/18 03:05 18 100 11/09/18 02:05 18 98 11/09/18 01:35 18 100 11/09/18 00:10 36.9 C 77 18 101/62 100 11/08/18 23:10 18 100 11/08/18 23:00 36.6 C 83 20 103/68 98 11/08/18 22:35 18 99 11/08/18 21:35 20 99 11/08/18 20:35 20 100 11/08/18 19:35 36.7 C 86 18 110/70 98 11/08/18 19:04 20 98 11/08/18 18:15 20 99 11/08/18 17:07 18 98 11/08/18 16:25 18 98 11/08/18 15:30 36.6 C 74 18 116/78 99 11/08/18 14:35 20 99 11/08/18 14:33 78 99 11/08/18 14:32 64 121/77 11/08/18 14:28 76 97 11/08/18 14:23 78 97 11/08/18 14:22 65 121/74 11/08/18 14:18 77 99 11/08/18 14:13 74 99 11/08/18 14:12 75 117/66 11/08/18 14:08 82 97 11/08/18 14:03 83 99 11/08/18 14:02 87 122/69 11/08/18 13:58 78 96 11/08/18 13:53 86 97 11/08/18 13:52 92 H 127/72 11/08/18 13:48 76 18 98 11/08/18 13:46 73 94 11/08/18 13:43 71 97 11/08/18 13:42 71 18 121/67 11/08/18 13:38 71 99 11/08/18 13:33 69 98 11/08/18 13:32 62 119/58 L 11/08/18 13:28 72 96 11/08/18 13:23 68 126/66 97 11/08/18 13:20 83 92 11/08/18 13:18 64 97 11/08/18 13:13 64 100 11/08/18 13:12 69 142/62 H 11/08/18 13:10 100 11/08/18 13:08 72 100 11/08/18 13:03 72 98 11/08/18 13:02 68 18 116/70 11/08/18 12:58 70 99 11/08/18 12:53 77 117/59 L 98 11/08/18 12:49 69 92 11/08/18 12:48 73 98 11/08/18 12:43 85 91 11/08/18 12:42 71 131/71 11/08/18 12:40 36.6 C 74 18 127/76 11/08/18 12:38 68 100 11/08/18 12:33 78 99 11/08/18 12:31 74 94 11/08/18 12:28 72 100 11/08/18 12:23 80 99 11/08/18 12:22 72 143/80 H 11/08/18 12:18 69 99 11/08/18 12:13 68 100 11/08/18 12:12 85 18 100/58 L 11/08/18 12:08 79 98 11/08/18 12:03 93 H 18 117/56 L 98 11/08/18 11:58 77 99 11/08/18 11:53 73 18 130/61 100 11/08/18 11:48 80 100 11/08/18 11:43 85 99 11/08/18 11:38 77 87 L 11/08/18 11:33 36.6 C 65 18 125/64 100 11/08/18 10:18 99 H 97 11/08/18 10:14 64 116/67 11/08/18 10:13 79 95 11/08/18 10:08 60 97 11/08/18 10:05 57 L 123/63 11/08/18 09:57 71 99 11/08/18 09:52 71 99 11/08/18 09:49 60 124/59 L 11/08/18 09:47 69 99 11/08/18 09:42 75 100 11/08/18 09:37 79 100 08/08/19 09:35 99 H 146/93 H 11/08/18 09:32 63 100 11/08/18 09:31 68 77 L 11/08/18 09:26 61 99 11/08/18 09:25 55 L 87 L 11/08/18 09:20 57 L 123/71 99 11/08/18 09:15 75 99 11/08/18 09:10 69 99 11/08/18 09:09 70 90 11/08/18 09:05 63 100 11/08/18 09:03 59 L 111/70 11/08/18 09:00 67 100 11/08/18 08:55 75 98 11/08/18 08:52 36.6 C 16 11/08/18 08:50 64 99 11/08/18 08:48 63 110/67 11/08/18 08:45 71 100 11/08/18 08:40 82 100 11/08/18 08:38 73 93 Pain Intensity Bilateral Pelvic: Pain Intensity: 4 Transfer of Care Handoff Completed per policy Notes Mental Status: alert / awake / arousable Patient Amnestic to Procedure: Yes Nausea / Vomiting: adequately controlled Pain: adequately controlled Airway Patency, RR, SpO2: stable & adequate BP & HR: stable & adequate Hydration State: stable & adequate Neuraxial Anesthesia: was administered and sensory block resolved Anesthetic Complications: no major complications apparent and Pt Satisfied with anesthetic care
[2018-11-09] MEDS: IBUPROFEN 600 MG TAB PO PRN ×3 (09:40→20:39)
[2018-11-09] MEDS ORDERED: BISACODYL 5 MG TABEC PO SCH (20:00)
[2018-11-09] MEDS: OXYCODONE/ACETAMINOPHEN 5mg/325mg TAB PO PRN (20:43)
[2018-11-10] MEDS: IBUPROFEN 600 MG TAB PO PRN ×6 (00:28→21:27)
[2018-11-10] MEDS: OXYCODONE/ACETAMINOPHEN 5mg/325mg TAB PO PRN ×6 (00:28→21:27)
[2018-11-10 07:33] LABS: Hematocrit (blood only) 24.8 % (37-47); Hemoglobin 8.4 g/dL (12.0-16.0)
[2018-11-10] MEDS: SIMETHICONE 80 MG CHEW PO SCH ×4 (08:14→20:33)
[2018-11-10] MEDS: PRENATAL VITAMIN 1 TAB PO SCH (08:15)
[2018-11-10] MEDS: DOCUSATE SODIUM 100 MG CAP PO SCH ×2 (08:15→20:33)
[2018-11-10] MEDS: FERROUS SULFATE 325 MG TAB PO SCH (08:15)
--- NOTE | 2018-11-10 09:07 | Obstetrical Progress Note ---
Date of Service November 10, 2018 Assessment & Plan (1) delivery, delivered, current hospitalization: doing well. Santos out, voiding. Encourage ambulation. Work on breast feeding. routine PP care. Patient may request early discharge for later today Subjective Ambulation: ambulating normally Voiding: no voiding problems Passing Gas:: Yes Diet Tolerance:: regular diet Lochia:: Moderate Feeding Type:: breast feeding Current Pain Level(1-10): 5 Physical Exam Genitourinary OB Exam Abdomen: + fundal height Fundus: + firm and + relation to umbilicus (Below); not tender and not boggy Results & Data Vital Signs (Past 12 Hours) Vital Signs Temp Pulse Resp BP Pulse Ox 11/10/18 05:17 36.4 C L 70 20 111/68 100 11/10/18 00:15 36.4 C L 80 18 117/73
[2018-11-10] MEDS ORDERED: BISACODYL 10 MG SUPP PR PRN (11:35)
[2018-11-11] MEDS: OXYCODONE/ACETAMINOPHEN 5mg/325mg TAB PO PRN ×3 (01:34→09:28)
[2018-11-11] MEDS: IBUPROFEN 600 MG TAB PO PRN ×3 (01:34→09:27)
--- NOTE | 2018-11-11 06:42 | Obstetrical Progress Note ---
Date of Service November 11, 2018 Assessment & Plan (1) Encounter for induction of labor: (2) Supervision of elderly primigravida: (3) delivery, delivered, current hospitalization: routine care. desires d/c home. f/u 6 wks pp check. discussed use of pain meds. instructions reviewed. Day #:: 3 Subjective Ambulation: ambulating normally Voiding: no voiding problems Passing Gas:: Yes Diet Tolerance:: regular diet Lochia:: Small Feeding Type:: breast feeding doing well. pain medicine helping with pain control. breast feeding. wants to go home today. Physical Exam Constitutional WD/WN, vitals as above Respiratory normal respiratory effort, lungs clear to auscultation Cardiovascular Rate/Rhythm: regular rate and regular rhythm Gastrointestinal (Abdomen) Percussion/Palpation: abdomen soft; abdomen nontender ff 2down, incision c/d/i with steris. Musculoskeletal nt calves, trace edema Neurologic grossly normal Psychiatric A+Ox3, euthymic affect Results & Data Vital Signs (Past 12 Hours) Vital Signs Temp Pulse Resp BP 11/10/18 23:20 98.1 F 69 18 111/68 11/10/18 19:35 97.7 F 80 18 105/69
[2018-11-11] MEDS: PRENATAL VITAMIN 1 TAB PO SCH (09:26)
[2018-11-11] MEDS: FERROUS SULFATE 325 MG TAB PO SCH (09:27)
[2018-11-11] MEDS: DOCUSATE SODIUM 100 MG CAP PO SCH (09:27)
[2018-11-11] MEDS: SIMETHICONE 80 MG CHEW PO SCH (09:30)
--- NOTE | 2018-11-12 09:55 | Discharge Summary ---
ADMISSION DIAGNOSIS: Intrauterine at 40 and 4/7 weeks for induction for postdates. DISCHARGE DIAGNOSES: 1. Santos bulb for cervical ripening. 2. Pitocin augmentation. 3. Epidural anesthesia. 4. FSE and IUPC placement. 5. section for failure to descend. PROCEDURES: As noted above, plus primary low transverse section. HISTORY: The patient is a 33-year-old white female 1, para 0 at 40 and 4 weeks confirmed via ultrasound here for induction for vaginal delivery. The previous evening, she had a Santos bulb placed and this had not fallen out. She had had essentially no issues with her . She has good movement, some sporadic contractions. For the rest of patient's detailed history and physical, please see her history and physical. ASSESSMENT: This is an encounter for induction of labor. HOSPITAL COURSE: The Santos bulb was still in place, so she was started on a Pitocin drip for augmentation/induction. She progressed quite slowly with need for IUPC and FSE placement with a category 2 strip throughout the night. I took over the care of the patient on day 2 of her induction. At that point in time, she was complete-complete and +1 station. It was noted that she had a very tight vaginal band anteriorly and a small pelvis and I was concerned about the fit of this baby. The patient pushed for well over an hour close to an hour and a half, both the knee-chest and then a semi-Wheat's. Unfortunately, the fetus did not tolerate pushing well with severe deep variables, it did continue to have moderate variability. The baby did not descend over this area of pushing. I discussed the situation with the patient and her and we proceeded with section. The patient underwent a primary low transverse section with a left cervical extension and repair. ESTIMATED BLOOD LOSS: 700 mL. FINDINGS: Normal uterus, tubes, and ovaries were noted bilaterally. Viable male infant was delivered, it was wedged into the pelvis in LOP presentation, Apgars were 5 and 9, weight pending. The patient's postoperative course was uncomplicated. She tolerated a regular diet, ambulated without difficulty, voided after the removal of her Santos catheter and her pain was well controlled on oral pain medicines. She was discharged home on day 3 with a script for Percocet for pain and routine followup.
== END 2018-11-11 11:45 | disposition home or self-care (01) | DRG 788 ==
LOC: 4S1 07:42 → 4S2 11-08 14:38